=== PATIENT | female | born 1985 | race Caucasian/White ===

== ENCOUNTER → 2017-10-30 11:10 | Outpatient (CLI) | payer OTHER, SELFPAY ==
[2017-10-31 12:35] LABS: Bacteria 0 SEEN /hpf (None Seen); Mucous, Urine 0 SEEN /hpf (<or=2+); Red Blood Cells-Urine 0 SEEN /hpf (0-5)
[2017-10-31 13:10] LABS: Color, Urine Yellow (Yellow); Glucose, Dipstick Normal (Normal); Ketone-Dipstick Negative (Negative); Leukocyte Esterase-Dipstick 500 /ul (Negative); Nitrite-Dipstick Negative (Negative); Occult Blood-Urine 250 /ul (Negative); Protein-Dipstick 30 mg/dl (Negative); Urine Bilirubin Dipstick Negative (Negative); Urine Clarity Cloudy (Clear); Urine Urobilinogen Normal (Normal)
[2017-10-31 13:23] LABS: Squamous Epithelial Cells - UA 5-10 SEEN /hpf (5-10); White Blood Cells >100 SEEN /hpf (0-5)
== END ==
PROVIDERS: Visit Provider Physician Assistant Medical
DX: R30.0 Dysuria (principal)
CPT/HCPCS: 81001; 87077; 87086; 87088; 87186

== ENCOUNTER → 2017-11-15 13:25 | Outpatient (CLI) | payer OTHER, SELFPAY | PROVIDERS: Visit Provider Obstetrics & Gynecology | DX: N90.0 Mild vulvar dysplasia (principal) | CPT/HCPCS: 87086 ==

== ENCOUNTER 2017-12-22 18:40 | Emergency (ER) | payer OTHER, SELFPAY ==
[2017-12-22 18:41] VITALS: BP 125/92; PULSE 71; RESP 14; TEMP 37.1; O2SAT 97; BMI 28.3
--- NOTE | 2017-12-22 19:58 | ED.VISSUMM ---
- ER Visit Summary Date of Service: 12/22/17 Chief Complaint: [Left shoulder pain] History of Present Illness: The patient is a 32 F [presents the emergency department complaint left shoulder pain that started 3 or 4 days ago. Patient states that she rolled over while sleeping and felt a pop in her left shoulder and had severe pain at that time but then ended up just falling back asleep. Since that time patient's had continued discomfort in her left shoulder that at times will send pain radiating down towards her hand. Patient denies any weakness in the extremity. Certain range of motion does cause her more pain. Patient denies any neck pain or neck injury. She denies recent travel or surgery.] Physical Examination: [HEENT-PERRLA, EOMI. Cranial nerves II through XII grossly intact. TMs clear. Mucous membranes moist. No adenopathy. No C-spine tenderness on palpation Cardiovascular-regular rate and rhythm without murmur or ectopy Lungs-clear to auscultation, chest wall stable without crepitus or subcu emphysema Abdomen-normoactive bowel sounds, soft, nontender, no rebound or rigidity, no peritoneal signs. Extremities-intact ?4, normal range of motion, normal pulses. Left shoulder-patient has some mild discomfort along the glenohumeral joint. Patient has normal range of motion at the glenohumeral joint is able to put her arm behind her back. Patient is able to abduct to 90? and resisted abduction. She is neurovascular intact distally with normal station normal cap refill and normal pulses. Patient has normal dermatopathologist strength. Test Results: [None indicated. We discussed obtaining x-ray of the left shoulder but felt this would be low yield given that she has had no direct trauma and clinically I do not feel the shoulder is dislocated.] Emergency Department Course and Treatment: [I suspect likely soft tissue injury to the shoulder.] Treatment Plan: [Patient will be given a sling and a prescription for Naprosyn and [place]] Disposition: [Discharged home in stable condition] Impression: [Left shoulder sprain-possible internal derangement] This note was generated with [employer] dictation software. It may contain incorrect words, spelling, and punctuation that were not noted in review of the chart prior to signing ED Disposition - Plan for ED Patient: Chief Complaint: Upper Extremity Injury Referrals: Care Physician,No Primary [Primary Care Provider] -
--- NOTE | 2017-12-22 20:01 | ED.DCSUM_ITS ---
- ER Visit Summary Date of Service: 12/22/17 Chief Complaint: [Left shoulder pain] History of Present Illness: The patient is a 32 F [presents the emergency department complaint left shoulder pain that started 3 or 4 days ago. Patient states that she rolled over while sleeping and felt a pop in her left shoulder and had severe pain at that time but then ended up just falling back asleep. Since that time patient's had continued discomfort in her left shoulder that at times will send pain radiating down towards her hand. Patient denies any weakness in the extremity. Certain range of motion does cause her more pain. Patient denies any neck pain or neck injury. She denies recent travel or surgery.] Physical Examination: [HEENT-PERRLA, EOMI. Cranial nerves II through XII grossly intact. TMs clear. Mucous membranes moist. No adenopathy. No C- spine tenderness on palpation Cardiovascular-regular rate and rhythm without murmur or ectopy Lungs-clear to auscultation, chest wall stable without crepitus or subcu emphysema Abdomen-normoactive bowel sounds, soft, nontender, no rebound or rigidity, no peritoneal signs. Extremities-intact ?4, normal range of motion, normal pulses. Left shoulder- patient has some mild discomfort along the glenohumeral joint. Patient has normal range of motion at the glenohumeral joint is able to put her arm behind her back. Patient is able to abduct to 90? and resisted abduction. She is neurovascular intact distally with normal station normal cap refill and normal pulses. Patient has normal improvement intern strength. Test Results: [None indicated. We discussed obtaining x-ray of the left shoulder but felt this would be low yield given that she has had no direct trauma and clinically I do not feel the shoulder is dislocated.] Emergency Department Course and Treatment: [I suspect likely soft tissue injury to the shoulder.] Treatment Plan: [Patient will be given a sling and a prescription for Naprosyn and [place]] Disposition: [Discharged home in stable condition] Impression: [Left shoulder sprain-possible internal derangement] This note was generated with Y[employer] dictation software. It may contain incorrect words, spelling, and punctuation that were not noted in review of the chart prior to signing ED Disposition - Plan for ED Patient: Chief Complaint: Upper Extremity Injury Referrals: Care Physician,No Primary [Primary Care Provider] -
--- NOTE | 2017-12-22 20:01 | ED.DEP ---
ED Disposition - Plan for ED Patient: Chief Complaint: Upper Extremity Injury Instructions: ED Sprain Shoulder Prescriptions: Hydrocodone Bitart/Apap 5-325 [[place] 5MG-325MG] 1 tab PO Q4H PRN PRN 2 Days #10 tab PRN Reason: Pain Naproxen [Naprosyn] 500 mg PO BID PRN #20 tab Referrals: Care Physician,No Primary [Primary Care Provider] - Diego Pastrana MD [STAFF PHYSICIAN] - 3-5 Days
[2017-12-22 20:13] VITALS: BP 114/97; PULSE 79; RESP 16; O2SAT 96
== END 2017-12-22 20:14 | disposition home or self-care (01) ==
LOC: ED 20:04
PROVIDERS: Emergency Provider Emergency Medicine; Family Provider Internal Medicine; PCP Internal Medicine
DX: S43.402A Unspecified sprain of left shoulder joint, initial encounter (principal); X58.XXXA Exposure to other specified factors, initial encounter; Y93.84 Activity, sleeping; Y92.003 Bedroom of unspecified non-institutional (private) residence as the place of occurrence of the external cause; Y99.8 Other external cause status
CPT/HCPCS: 99283

== ENCOUNTER → 2018-03-29 13:26 | Outpatient (CLI) | payer OTHER, SELFPAY ==
[2018-03-29 14:32] LABS: hCG Titer Quant., Serum 356 mIU/mL (<9 non-preg)
== END ==
PROVIDERS: Visit Provider Obstetrics & Gynecology
DX: Z34.81 Encounter for supervision of other normal pregnancy, first trimester (principal)
CPT/HCPCS: 36415; 84702

== ENCOUNTER → 2018-03-31 13:22 | Outpatient (CLI) | payer OTHER, SELFPAY ==
[2018-03-31 15:38] LABS: hCG Titer Quant., Serum 295 mIU/mL (<9 non-preg)
[2018-03-31 16:13] LABS: Progesterone Level 2.46 ng/mL (See Comment)
== END ==
PROVIDERS: Visit Provider Obstetrics & Gynecology
DX: Z34.81 Encounter for supervision of other normal pregnancy, first trimester (principal)
CPT/HCPCS: 36415; 84144; 84702

== ENCOUNTER → 2018-06-08 14:53 | Outpatient (CLI) | payer OTHER, SELFPAY ==
[2018-06-08 12:45] VITALS: BMI 28.3
== END ==
PROVIDERS: Referring Provider Physician Assistant; Visit Provider Physician Assistant
DX: J02.9 Acute pharyngitis, unspecified (principal)
CPT/HCPCS: 87081

== ENCOUNTER → 2018-06-19 13:23 | Outpatient (CLI) | payer OTHER, SELFPAY ==
[2018-06-08 12:45] VITALS: BMI 28.3
[2018-06-19 17:52] LABS: Progesterone Level 16.75 ng/mL (See Comment)
== END ==
PROVIDERS: Visit Provider Obstetrics & Gynecology
DX: N97.0 Female infertility associated with anovulation (principal)
CPT/HCPCS: 36415; 84144

== ENCOUNTER → 2018-08-28 | Outpatient (CLI) | payer OTHER, SELFPAY ==
[2018-06-08 12:45] VITALS: BMI 28.3
== END | disposition home or self-care (01) ==
LOC: WOBLAB 11:53
PROVIDERS: Visit Provider Obstetrics & Gynecology
DX: N97.1 Female infertility of tubal origin (principal)
CPT/HCPCS: 36415; 84144

== ENCOUNTER → 2018-09-25 11:19 | Outpatient (CLI) | payer OTHER, SELFPAY ==
[2018-06-08 12:45] VITALS: BMI 28.3
[2018-09-25 13:29] LABS: Progesterone Level 0.39 ng/mL (See Comment)
== END ==
PROVIDERS: Visit Provider Obstetrics & Gynecology
DX: N97.1 Female infertility of tubal origin (principal)
CPT/HCPCS: 36415; 84144

== ENCOUNTER → 2018-11-08 | Outpatient (CLI) | payer OTHER, SELFPAY ==
[2018-06-08 12:45] VITALS: BMI 28.3
[2018-11-08 16:05] LABS: Progesterone Level 7.76 ng/mL (See Comment)
== END | disposition home or self-care (01) ==
LOC: WOBLAB 13:11
PROVIDERS: Visit Provider Obstetrics & Gynecology
DX: N97.1 Female infertility of tubal origin (principal)
CPT/HCPCS: 36415; 84144

== ENCOUNTER → 2019-06-01 17:42 | Outpatient (CLI) | payer OTHER, SELFPAY ==
[2019-03-17 08:44] VITALS: BMI 28.3
--- NOTE | 2019-06-01 17:49 | US_ITS ---
STUDY: FIRST TRIMESTER OBSTETRICAL ULTRASOUND REASON FOR EXAM: Female, 34 years old viability. [place] urine. Some discomfort. LMP: April 04, 2019. TECHNIQUE: Transvaginal TECHNICAL QUALITY: Adequate. PRIOR ULTRASOUND: None. FINDINGS: There is visualization of a single gestational sac in a normal intrauterine position. The mean sac diameter (MSD) measures 1.44 cm, indicating an estimated gestational age (EGA) of 6 weeks, 2 days. The gestational sac shape is within normal limits. There is a visualized yolk sac. The yolk sac measures 0.54 cm. The placenta is non-visualized. There is visualization of a live embryo. The crown-rump length (CRL) measures 0.26 cm, indicating an estimated gestational age (EGA) of 5 weeks, 6 days. There is demonstrated cardiac activity with a heart rate of 85 bpm. The estimated gestation age (EGA) by LMP is 8 weeks, 2 days. The estimated date of delivery (MT) by LMP is January 09, 2020. The estimated gestation age (EGA) by US is 6 weeks, 1 days. The estimated date of delivery (MT) by US is January 24, 2020. The uterus measures 8.7 x 7.1 x 5.0 cm. There is no demonstrated uterine fibroid. The cervix is closed. The right ovary measures 4.1 x 3.4 x 2.5 cm. There is a 1.9 x 1.9 x 1.4 cm dominant cyst. There is no visualized right adnexal mass or complex lesion. The left ovary measures 4.5 x 2.3 x 1.6 cm. There is no left ovarian cyst. There is no visualized left adnexal mass or complex lesion. There is no fluid in the cul de sac. US/Transvaginal w/Preg US IMPRESSION: 1. Live single intrauterine at 6 weeks, 1 day. 2. heart rate of 85 bpm. 3. Question right ovarian corpus luteum cyst. Electronically Signed: Malik James DO at 19:27 EST Tel [phone], Service support ,
== END ==
PROVIDERS: Referring Provider Obstetrics & Gynecology; Visit Provider Obstetrics & Gynecology
DX: O36.80X0 Pregnancy with inconclusive fetal viability, not applicable or unspecified (principal); Z3A.00 Weeks of gestation of pregnancy not specified
CPT/HCPCS: 76817

== ENCOUNTER → 2019-06-13 09:43 | Outpatient (CLI) | payer OTHER, SELFPAY ==
[2019-06-13 09:17] VITALS: BMI 29.0
[2019-06-13 10:17] LABS: Absolute Lymphocyte Count 1.47 X10^3/uL (0.83-4.51); Absolute Neutrophil Count 4.7 X10^3/uL (2.0-7.7); Basophil# 0.03 X10^3/uL; Basophil% 0.4 % (0-1); Eosinophil# 0.16 X10^3/uL; Eosinophils% 2.4 % (0-5); Hematocrit 39.2 % (37-47); Hemoglobin 12.6 g/dL (12.0-15.0); Lymphocyte # 1.47 X10^3/ul (4.0); Lymphocyte % 21.8 % (19-41); Mean Corp Hgb Conc 32.1 g/dL (32-36); Mean Corpuscular Hgb 26.6 pg (27.0-32.0); Mean Corpuscular Volume 82.7 fL (81-99); Mean Platelet Vol. 8.7 fl (6.2-12.0); Monocyte# 0.41 X10^3/uL; Monocyte% 6.1 % (0-10); NRBC Flagged by Analyzer 0 % (0-5); Neutrophil # 4.65 X10^3/uL (2.7-7.7); Platelet Count 334 K/mm3 (150-450); RBC Distribution Width CV 13.4 % (11.6-14.6); RBC Distribution Width SD 40.2 fl (35.1-43.9); Red Blood Count 4.74 M/mm3 (4.2-5.4); White Blood Count 6.7 K/mm3 (4.4-11.0)
[2019-06-13 11:14] LABS: T4 Free Direct 0.82 ng/dL (0.76-1.46); Thyroid Stim Hormone (TSH) 2.42 uIU/mL (0.358-3.74)
== END ==
PROVIDERS: Nurse Practitioner Women's Health; Referring Provider Obstetrics & Gynecology; Visit Provider Obstetrics & Gynecology
DX: O03.9 Complete or unspecified spontaneous abortion without complication (principal)
CPT/HCPCS: 36415; 84439; 84443; 85025

== ENCOUNTER → 2019-06-15 17:59 | Outpatient (CLI) | payer OTHER, SELFPAY ==
[2019-06-13 09:17] VITALS: BMI 29.0
[2019-06-13 09:49] VITALS: BMI 28.3
--- NOTE | 2019-06-15 18:02 | US_ITS ---
STUDY: ULTRASOUND OF THE FEMALE PELVIS - COMPLETE REASON FOR EXAM: Female, 34 years old. Bleeding, status post miscarriage LMP: TECHNIQUE: Endovaginal TECHNICAL QUALITY: Adequate. COMPARISON: None. FINDINGS: The uterus is anteverted and is in a midline position. The uterus measures 7.8 x 6.6 x 5.5 cm. Nabothian cysts at the uterine cervix. The endometrium measures 17 mm in thickness, and is heterogeneous with mild vascularity. There is possible mild endometrial fluid and possible clot. There is no demonstrated myometrial mass. The patient does not have an I.U.D. The right ovary is visualized. The right ovary measures 3.4 x 2.7 x 1.8 cm. There is a 1.5 cm right ovarian cyst. There is normal arterial and normal venous vascularity. The left ovary is visualized. The left ovary measures 3.6 x 2.5 x 2.4 cm. There is no left ovarian cyst or ovarian mass. There is no visualized left adnexal mass or complex lesion. There is normal arterial and normal venous vascularity. There is mild fluid in the cul-de-sac. US/Transvaginal Non- IMPRESSION: Mild heterogeneity of the endometrium within a retroverted uterus. Possible trace endometrial fluid and possible clot. Small right ovarian cyst. Mild free fluid in the pelvis. Electronically Signed: Isaac Tavera DO at 19:11 EST Tel [phone], Service support ,
== END ==
LOC: US 18:00
PROVIDERS: Referring Provider Nurse Practitioner Women's Health; Visit Provider Nurse Practitioner Women's Health
DX: N83.201 Unspecified ovarian cyst, right side (principal)
CPT/HCPCS: 76830

== ENCOUNTER → 2019-06-25 12:25 | Outpatient (CLI) | payer OTHER, SELFPAY ==
[2019-06-13 09:49] VITALS: BMI 28.3
[2019-06-25 13:27] LABS: hCG Titer Quant., Serum 39 mIU/mL (1-3)
== END ==
PROVIDERS: Referring Provider Obstetrics & Gynecology; Visit Provider Obstetrics & Gynecology
DX: N96 Recurrent pregnancy loss (principal)
CPT/HCPCS: 36415; 84702

== ENCOUNTER → 2019-07-02 16:47 | Outpatient (CLI) | payer OTHER, SELFPAY ==
[2019-06-13 09:49] VITALS: BMI 28.3
[2019-07-02 17:40] LABS: hCG Titer Quant., Serum 9 mIU/mL (1-3)
== END ==
PROVIDERS: Nurse Practitioner Women's Health; Referring Provider Obstetrics & Gynecology; Visit Provider Obstetrics & Gynecology
DX: N96 Recurrent pregnancy loss (principal)
CPT/HCPCS: 36415; 84702

== ENCOUNTER → 2019-07-09 11:41 | Outpatient (CLI) | payer OTHER, SELFPAY ==
[2019-06-13 09:49] VITALS: BMI 28.3
[2019-07-09 12:18] LABS: hCG Titer Quant., Serum 4 mIU/mL (1-3)
== END ==
PROVIDERS: Nurse Practitioner Women's Health; Referring Provider Obstetrics & Gynecology; Visit Provider Obstetrics & Gynecology
DX: O03.9 Complete or unspecified spontaneous abortion without complication (principal)
CPT/HCPCS: 36415; 84702

== ENCOUNTER → 2020-07-24 09:22 | Outpatient (CLI) | payer OTHER, SELFPAY ==
[2019-06-13 09:49] VITALS: BMI 28.3
[2020-07-24 10:11] LABS: hCG Titer Quant., Serum 18 mIU/mL (1-3)
== END ==
PROVIDERS: Referring Provider Obstetrics & Gynecology; Visit Provider Obstetrics & Gynecology
DX: N91.2 Amenorrhea, unspecified (principal)
CPT/HCPCS: 36415; 84702

== ENCOUNTER → 2020-07-26 07:52 | Outpatient (CLI) | payer OTHER, SELFPAY ==
[2019-06-13 09:49] VITALS: BMI 28.3
[2020-07-26 10:14] LABS: hCG Titer Quant., Serum 54 mIU/mL (1-3)
== END ==
PROVIDERS: Referring Provider Obstetrics & Gynecology; Visit Provider Obstetrics & Gynecology
DX: N91.2 Amenorrhea, unspecified (principal)
CPT/HCPCS: 36415; 84702

== ENCOUNTER → 2020-07-28 12:53 | Outpatient (CLI) | payer OTHER, SELFPAY ==
[2019-06-13 09:49] VITALS: BMI 28.3
[2020-07-28 13:57] LABS: hCG Titer Quant., Serum 146 mIU/mL (1-3)
== END ==
PROVIDERS: Referring Provider Obstetrics & Gynecology; Visit Provider Obstetrics & Gynecology
DX: N96 Recurrent pregnancy loss (principal)
CPT/HCPCS: 36415; 84702

== ENCOUNTER → 2020-08-13 07:58 | Outpatient (CLI) | payer OTHER, SELFPAY ==
[2019-06-13 09:49] VITALS: BMI 28.3
[2020-08-05 12:58] VITALS: BMI 28.3
--- NOTE | 2020-08-13 08:01 | US_ITS ---
STUDY: FIRST TRIMESTER OBSTETRICAL ULTRASOUND REASON FOR EXAM: Female, 35 years old viability . History of recurrent miscarriages. LMP: 06/22/2020. TECHNIQUE: Transabdominal TECHNICAL QUALITY: Adequate. PRIOR ULTRASOUND: None. FINDINGS: There is visualization of a single gestational sac in a normal intrauterine position. The mean sac diameter (MSD) measures 1.9 cm, indicating an estimated gestational age (EGA) of 6 weeks, 5 days. The gestational sac shape is within normal limits. There is a visualized yolk sac. The yolk sac measures 4.7 mm. The placenta is non-visualized. There is visualization of a live embryo. The crown-rump length (CRL) measures 5.6 mm, indicating an estimated gestational age (EGA) of 6 weeks, 3 days. There is demonstrated cardiac activity with a heart rate of 123 bpm. The estimated gestation age (EGA) by LMP is 7 weeks, 3 days. The estimated date of delivery (MT) by LMP is 03/29/2021. The estimated gestation age (EGA) by US is 6 weeks, 4 days. The estimated date of delivery (MT) by US is 04/04/2021. The uterus measures 10.2 cm x 6.9 cm x 6.3 cm. There is no demonstrated uterine fibroid. The cervix is closed. There is an 8 mm x 15 mm x 3 mm subchorionic hematoma. The right ovary measures 3.6 cm x 3.1 cm x 2.1 cm. There is no right ovarian cyst. There is no visualized right adnexal mass or complex lesion. The left ovary measures 5.6 cm x 4.8 cm x 2.6 cm. There is a 2.2 cm x 2.5 cm x 2.6 cm cyst. There is no visualized left adnexal mass or complex lesion. Trace amount of free fluid. US/Transvaginal w/Preg US IMPRESSION: Single live intrauterine gestation with a mean gestational age of 6 weeks and 4 days. There 8 mm x 13 mm x 3 mm subchorionic hematoma. 2.2 cm x 2.5 cm x 2.6 cm left ovarian cyst. Electronically Signed: Joel Tay MD at 13:00 EDT , Service support ,
== END ==
PROVIDERS: PCP Internal Medicine; Referring Provider Obstetrics & Gynecology; Visit Provider Obstetrics & Gynecology
DX: Z34.90 Encounter for supervision of normal pregnancy, unspecified, unspecified trimester (principal); N96 Recurrent pregnancy loss
CPT/HCPCS: 76817

== ENCOUNTER → 2020-08-28 16:12 | Outpatient (CLI) | payer OTHER, SELFPAY ==
[2020-08-28 14:01] VITALS: BMI 33.3
[2020-08-28 18:04] LABS: Amphetamine Urine VISTA NEGATIVE (<1000 ng/mL); Barbiturate Urine VISTA NEGATIVE (< 200 ng/mL); Benzodiazepine Urine VISTA NEGATIVE (< 200 ng/mL); Cocaine Urine VISTA NEGATIVE (< 300 ng/mL); Ecstacy Urine VISTA NEGATIVE (< 500 ng/mL); Methadone Urine VISTA NEGATIVE (< 300 ng/mL); PCP Urine VISTA NEGATIVE (< 25 ng/mL); THC Urine VISTA NEGATIVE (< 50 ng/mL); Vista UDS pH Range 5
[2020-08-31 14:07] LABS: Chlamydia By Nucleic Acid AMP Negative (Negative)
[2020-08-31 17:30] LABS: Gonococcus By Nucleic Acid AMP Negative (Negative)
[2020-09-02 16:33] LABS: HPV APTIMA, High Risk Negative (Negative)
== END ==
PROVIDERS: PCP Internal Medicine; Referring Provider Obstetrics & Gynecology; Visit Provider Obstetrics & Gynecology
DX: O09.90 Supervision of high risk pregnancy, unspecified, unspecified trimester (principal); Z12.4 Encounter for screening for malignant neoplasm of cervix; Z3A.00 Weeks of gestation of pregnancy not specified
CPT/HCPCS: 80307; 87086; 87088; 87491; 87591; 87624; 88175; G0145

== ENCOUNTER → 2020-09-15 13:29 | Outpatient (CLI) | payer OTHER, SELFPAY ==
[2020-09-15 13:08] VITALS: BMI 33.3
[2020-09-15 14:02] LABS: Absolute Lymphocyte Count 1.78 X10^3/uL (0.83-4.51); Absolute Neutrophil Count 6.6 X10^3/uL (2.0-7.7); Basophil# 0.02 X10^3/uL; Basophil% 0.2 % (0-1); Eosinophil# 0.16 X10^3/uL; Eosinophils% 1.8 % (0-5); Hemoglobin 13.2 g/dL (12.0-15.0); Lymphocyte # 1.78 X10^3/ul (0.83-4.51); Lymphocyte % 19.6 % (19-41); Mean Corp Hgb Conc 33.8 g/dL (32-36); Mean Corpuscular Hgb 27.6 pg (27.0-32.0); Mean Corpuscular Volume 81.4 fL (81-99); Monocyte# 0.44 X10^3/uL; Monocyte% 4.8 % (0-10); NRBC Flagged by Analyzer 0 % (0-5); Neutrophil # 6.62 X10^3/uL (2.7-7.7); Neutrophil % 72.9 % (47-70); Platelet Count 333 K/mm3 (150-450); RBC Distribution Width CV 13.6 % (11.6-14.6); RBC Distribution Width SD 39.8 fl (35.1-43.9); Red Blood Count 4.79 M/mm3 (4.2-5.4); White Blood Count 9.1 K/mm3 (4.4-11.0)
[2020-09-15 14:33] LABS: Glucose Challenge Gest 1H 50g 115 mg/dL (70-140)
[2020-09-15 14:37] LABS: Protein, Urine (Random) 17.7 mg/dL (<11.9); Protein:Creat Ratio 121 mg/g CRE (0-200)
[2020-09-15 14:39] LABS: AST(SGOT) 14 U/L (15-37); Alanine Aminotransfer ALT/SGPT 25 U/L (13-56); Albumin, Serum 3.2 g/dL (3.2-5.0); Alkaline Phosphatase 69 U/L (45-117); Anion Gap 9 (5-15); BUN 6 mg/dL (7-18); BUN/Creat Ratio 10.9 RATIO (10-20); Calcium,Total 8.6 mg/dL (8.5-10.1); Chloride 106 mmol/L (98-107); Creatinine, Serum 0.55 mg/dL (0.55-1.02); EST Glomerular Filtration Rate 135 mL/min (>60); Est Glom Filt Rate - Afr Amer 163 mL/min (>60); Globulin 3.2 g/dL (2.2-4.2); Glucose 111 mg/dL (74-106); Potassium 3.5 mmol/L (3.5-5.1); Protein, Total 6.4 g/dL (6.4-8.2); Sodium Level 141 mmol/L (136-145)
[2020-09-15 15:22] LABS: NATERA MAILED SPECIMEN
[2020-09-15 17:06] LABS: HIV - WCH Non-Reactive (Nonreactive); Hepatitis B Surface Antigen Non-Reactive (Nonreactive); Hepatitis C Antibody Non-Reactive (Nonreactive); Rubella IgG Reactive (Nonreactive); Syphilis Antibodies Non-reactive
== END ==
PROVIDERS: PCP Internal Medicine; Referring Provider Obstetrics & Gynecology; Visit Provider Obstetrics & Gynecology
DX: O09.90 Supervision of high risk pregnancy, unspecified, unspecified trimester (principal); O99.210 Obesity complicating pregnancy, unspecified trimester; O10.919 Unspecified pre-existing hypertension complicating pregnancy, unspecified trimester; Z3A.00 Weeks of gestation of pregnancy not specified
CPT/HCPCS: 36415; 80053; 82570; 82950; 84156; 85025; 86703; 86762; 86780; 86803; 86850; 86900; 86901; 87340

== ENCOUNTER → 2020-10-30 14:23 | Outpatient (CLI) | payer OTHER, SELFPAY ==
[2020-10-30 13:51] VITALS: BMI 33.3
== END ==
PROVIDERS: PCP Internal Medicine; Referring Provider Obstetrics & Gynecology; Visit Provider Obstetrics & Gynecology
DX: N76.0 Acute vaginitis (principal)
CPT/HCPCS: 87070; 87205

== ENCOUNTER → 2020-11-07 16:48 | Outpatient (CLI) | payer OTHER, SELFPAY ==
[2020-11-07 13:17] VITALS: BMI 33.3
== END ==
PROVIDERS: PCP Internal Medicine; Visit Provider Obstetrics & Gynecology
DX: R10.2 Pelvic and perineal pain (principal)
CPT/HCPCS: 87086; 87088

== ENCOUNTER → 2021-01-08 08:02 | Outpatient (CLI) | payer OTHER, SELFPAY ==
[2020-12-11 15:35] VITALS: BMI 33.3
[2021-01-08 08:23] LABS: Absolute Lymphocyte Count 1.47 X10^3/uL (0.83-4.51); Absolute Neutrophil Count 7.7 X10^3/uL (2.0-7.7); Basophil# 0.02 X10^3/uL; Basophil% 0.2 % (0-1); Eosinophil# 0.13 X10^3/uL; Eosinophils% 1.3 % (0-5); Hematocrit 34.9 % (37-47); Hemoglobin 11.6 g/dL (12.0-15.0); Lymphocyte # 1.47 X10^3/ul (0.83-4.51); Lymphocyte % 14.7 % (19-41); Mean Corp Hgb Conc 33.2 g/dL (32-36); Mean Corpuscular Hgb 28.3 pg (27.0-32.0); Mean Corpuscular Volume 85.1 fL (81-99); Mean Platelet Vol. 9.3 fl (6.2-12.0); Monocyte# 0.57 X10^3/uL; Monocyte% 5.7 % (0-10); NRBC Flagged by Analyzer 0 % (0-5); Neutrophil # 7.68 X10^3/uL (2.7-7.7); Platelet Count 255 K/mm3 (150-450); RBC Distribution Width CV 14.8 % (11.6-14.6); RBC Distribution Width SD 46.3 fl (35.1-43.9)
[2021-01-08 08:39] LABS: Glucose Challenge Gest 1H 50g 111 mg/dL (70-140)
--- NOTE | 2021-01-08 09:07 | US_ITS ---
STUDY: SECOND AND THIRD TRIMESTER OBSTETRICAL ULTRASOUND - LIMITED REASON FOR EXAM: Female, 35 years old cervical length check LMP: 06/22/2020 PRIOR ULTRASOUND: Comparison is made with prior study of 08/13/2020. TECHNIQUE: Transvaginal TECHNICAL QUALITY: Adequate. FINDINGS: There is a single intrauterine fetus. The fetus is in a cephalic presentation. There is demonstrated cardiac activity with a heart rate of 158 bpm. The placenta is posterior in location and is not low lying. The cervix measures 3.84 cm in length. US/Transvaginal w/Preg US IMPRESSION: The tip of the placenta is at 3.9 cm from the internal os. Cervical length measures 3.8 cm. Electronically Signed: Joel Tay MD at 15:21 EDT , Service support ,
== END ==
PROVIDERS: PCP Internal Medicine; Referring Provider Obstetrics & Gynecology; Visit Provider Obstetrics & Gynecology
DX: O09.90 Supervision of high risk pregnancy, unspecified, unspecified trimester (principal); O44.42 Low lying placenta NOS or without hemorrhage, second trimester; Z3A.00 Weeks of gestation of pregnancy not specified; Z13.1 Encounter for screening for diabetes mellitus
CPT/HCPCS: 36415; 76817; 82950; 85025

== ENCOUNTER → 2021-02-12 08:01 | Outpatient (CLI) | payer OTHER, SELFPAY ==
[2020-11-13 16:19] VITALS: BMI 33.3
--- NOTE | 2021-02-12 08:04 | US_ITS ---
STUDY: SECOND AND THIRD TRIMESTER OBSTETRICAL ULTRASOUND - LIMITED REASON FOR EXAM: Female, 35 years old growth -- 32 weeks, high risk- multiple SABs LMP: 06/29/2020 PRIOR ULTRASOUND: Comparison is made with prior study 01/08/2021. TECHNIQUE: Transabdominal TECHNICAL QUALITY: Adequate. FINDINGS: There is a single intrauterine fetus. The fetus is in a cephalic presentation. There is demonstrated cardiac activity with a heart rate of 152 bpm. There is a normal amniotic fluid volume. The largest amniotic fluid pocket measures 4.4 cm. The amniotic fluid index (DEANA) is 13.4 cm. The placenta is posterior in location and is not low lying. There are Grade 2 placental changes. The cervix measures 3.3 cm in length. BIOMETRY: BPD: 8.2 cm: 32 weeks, 6 days HC: 29.8 cm: 32 weeks, 6 days AC: 29 cm: 33 weeks, 0 days FL: 6.4 cm: 30 weeks, 5 days Age by LMP: 32 weeks, 4 days. MT by LMP: 04/05/2021. age by prior US: 32 weeks, 3 days. MT by prior US: 04/04/2021. age by current US: 32 weeks, 4 days. MT by current US: 04/05/2021. Estimated weight: 2113 grams, +/- 317 grams, 56 percentile. US/OB Limited With Biometrics IMPRESSION: Single live intrauterine gestation with a mean gestational age of 32 weeks and 4 days. Electronically Signed: Joel Tay MD at 10:49 EDT , Service support ,
== END ==
PROVIDERS: PCP Internal Medicine; Referring Provider Obstetrics & Gynecology; Visit Provider Obstetrics & Gynecology
DX: O10.919 Unspecified pre-existing hypertension complicating pregnancy, unspecified trimester (principal); Z3A.00 Weeks of gestation of pregnancy not specified
CPT/HCPCS: 76816

== ENCOUNTER 2021-02-19 09:20 | Outpatient (CLI) | payer OTHER, SELFPAY ==
[2021-02-19 10:38] VITALS: TEMP 36.6; O2SAT 97
[2021-02-19 10:39] VITALS: BP 117/73; PULSE 95
[2021-02-19 11:02] VITALS: BMI 34.2
--- NOTE | 2021-02-20 16:14 | OB.TRI.PN_ITS ---
Progress Notes Date of Service: 02/19/21 Progress Note: Patient presents for triage evaluation secondary to possible decels in office. BPP 12/21. FHT Cat 1. FHT: Moderate variability reactive no decelerations category I tracing [place]: No Contractions Assessment and plan: Reactive NST, reassuring maternal and status patient discharged to home to follow-up at next scheduled visit. See problem list details for additional plan information. Charges/Coding Procedures Urinary/Genital [id number]: [id number] non-stress test Interp
== END 2021-02-19 11:52 | disposition home or self-care (01) ==
LOC: WPOUT 09:25 → WP 09:33
PROVIDERS: PCP Internal Medicine; Referring Provider Obstetrics & Gynecology; Visit Provider Obstetrics & Gynecology
DX: O47.9 False labor, unspecified (principal); Z3A.00 Weeks of gestation of pregnancy not specified
CPT/HCPCS: 59025; 59050; 99218; G0378

== ENCOUNTER → 2021-02-19 09:31 | Outpatient (CLI) | payer OTHER, SELFPAY ==
[2020-11-13 16:19] VITALS: BMI 33.3
--- NOTE | 2021-02-19 09:35 | US_ITS ---
STUDY: OBSTETRICAL ULTRASOUND - BIOPHYSICAL PROFILE REASON FOR EXAM: Female, 35 years old, decreased movement LMP: 06/29/2020 PRIOR ULTRASOUND: 02/12/2021 TECHNIQUE: Transabdominal TECHNICAL QUALITY: Adequate. FINDINGS: There is a single intrauterine fetus. The fetus is in a cephalic presentation. There is demonstrated cardiac activity with a heart rate of 167 bpm. There is a normal amniotic fluid volume. The largest amniotic fluid pocket measures 3.84 cm. The amniotic fluid index (DEANA) is 12.31 cm. The placenta is posterior in location and is not low lying. There are Grade 2 placental changes. Age by LMP: 33 weeks, 4 days. MT by LMP: 04/05/2021. age by prior US: 33 weeks, 5 days. MT by prior US: 04/04/2021. Gender: Male BIOPHYSICAL PROFILE: Breathing Movements (FBM): 2 Gross Body Movements (GBM): 2 Tone (FT): 2 Amniotic Fluid Volume (AFV): 2 TOTAL SCORE: 8 / 8 US/Biophysical Prof W/O Non Stres IMPRESSION: Normal biophysical profile of 12/21. Pega Developer notes a possible nuchal cord seen on image 37 series 1. A short-term follow-up ultrasound is recommended for reassessment Electronically Signed: Nicolas Salazar MD at 10:28 EDT , Service support ,
== END ==
PROVIDERS: PCP Internal Medicine; Referring Provider Obstetrics & Gynecology; Visit Provider Obstetrics & Gynecology
DX: O28.8 Other abnormal findings on antenatal screening of mother (principal); Z3A.00 Weeks of gestation of pregnancy not specified
CPT/HCPCS: 76819

== ENCOUNTER → 2021-03-12 08:48 | Outpatient (CLI) | payer OTHER, SELFPAY ==
[2020-11-13 16:19] VITALS: BMI 33.3
--- NOTE | 2021-03-12 08:51 | US_ITS ---
STUDY: SECOND AND THIRD TRIMESTER OBSTETRICAL ULTRASOUND - LIMITED REASON FOR EXAM: Female, 35 years old growth LMP: 06/29/2020. PRIOR ULTRASOUND: Comparison is made with prior study dated 02/12/2021. TECHNIQUE: Transabdominal TECHNICAL QUALITY: Adequate. FINDINGS: There is a single intrauterine fetus. The fetus is in a cephalic presentation. There is demonstrated cardiac activity with a heart rate of 149 bpm. There is a normal amniotic fluid volume. The largest amniotic fluid pocket measures 8.6 cm. The amniotic fluid index (DEANA) is 11.4 cm. The placenta is posterior in location and is not low lying. There are Grade 3 placental changes. BIOMETRY: BPD: 8.87 cm: 36 weeks, 0 days HC: 32.32 cm: 36 weeks, 4 days AC: 33.67 cm: 37 weeks, 5 days FL: 7.08 cm: 36 weeks, 4 days Age by LMP: 36 weeks, 4 days. MT by LMP: 04/05/2021. age by prior US: 36 weeks, 4 days. MT by prior US: 04/05/2021. age by current US: 36 weeks, 5 days. MT by current US: 04/04/2021. Estimated weight: 3076 grams, +/- 449 grams, 65 percentile. US/OB Limited With Biometrics IMPRESSION: Single live intrauterine gestation with a mean gestational age of 36 weeks and 4 days. The measurements obtained today following within the normal expected range. Electronically Signed: Joel Tay MD at 13:40 EDT , Service support ,
== END ==
PROVIDERS: PCP Internal Medicine; Referring Provider Obstetrics & Gynecology; Visit Provider Obstetrics & Gynecology
DX: O10.919 Unspecified pre-existing hypertension complicating pregnancy, unspecified trimester (principal); Z3A.00 Weeks of gestation of pregnancy not specified
CPT/HCPCS: 76816; 87081

== ENCOUNTER → 2021-03-31 11:18 | Outpatient (CLI) | payer OTHER, SELFPAY ==
[2021-03-31 11:48] LABS: Absolute Lymphocyte Count 1.63 X10^3/uL (0.83-4.51); Absolute Neutrophil Count 6.4 X10^3/uL (2.0-7.7); Basophil# 0.02 X10^3/uL; Basophil% 0.2 % (0-1); Eosinophil# 0.11 X10^3/uL; Eosinophils% 1.2 % (0-5); Hematocrit 37.2 % (37-47); Hemoglobin 12.4 g/dL (12.0-15.0); Lymphocyte # 1.63 X10^3/ul (0.83-4.51); Lymphocyte % 18.3 % (19-41); Mean Corp Hgb Conc 33.3 g/dL (32-36); Mean Platelet Vol. 9.3 fl (6.2-12.0); Monocyte# 0.69 X10^3/uL; Monocyte% 7.7 % (0-10); NRBC Flagged by Analyzer 0 % (0-5); Neutrophil % 71.7 % (47-70); Platelet Count 272 K/mm3 (150-450); RBC Distribution Width CV 15.2 % (11.6-14.6); RBC Distribution Width SD 46.2 fl (35.1-43.9); Red Blood Count 4.43 M/mm3 (4.2-5.4); White Blood Count 8.9 K/mm3 (4.4-11.0)
[2021-03-31 12:04] LABS: ALB/GLOB Ratio 0.6 RATIO (0.9-2.4); AST(SGOT) 8 U/L (15-37); Alanine Aminotransfer ALT/SGPT 13 U/L (13-56); Albumin, Serum 2.4 g/dL (3.2-5.0); Alkaline Phosphatase 142 U/L (45-117); Anion Gap 9 (5-15); BUN 4 mg/dL (7-18); BUN/Creat Ratio 6.6 RATIO (10-20); Calcium,Total 8.4 mg/dL (8.5-10.1); Chloride 108 mmol/L (98-107); Creatinine, Serum 0.61 mg/dL (0.55-1.02); EST Glomerular Filtration Rate 119 mL/min (>60); Est Glom Filt Rate - Afr Amer 145 mL/min (>60); Globulin 3.7 g/dL (2.2-4.2); Glucose 95 mg/dL (74-106); Potassium 3.8 mmol/L (3.5-5.1); Protein, Total 6.1 g/dL (6.4-8.2); Sodium Level 139 mmol/L (136-145)
[2021-03-31 12:29] LABS: Protein, Urine (Random) 6.8 mg/dL (<11.9); Protein:Creat Ratio 252 mg/g CRE (0-200)
== END ==
PROVIDERS: PCP Internal Medicine; Referring Provider Nurse Practitioner Women's Health; Visit Provider Nurse Practitioner Women's Health
DX: O16.9 Unspecified maternal hypertension, unspecified trimester (principal); Z3A.00 Weeks of gestation of pregnancy not specified
CPT/HCPCS: 36415; 80053; 82570; 84156; 85025

== ENCOUNTER 2021-03-31 12:45 | Inpatient (IN) | payer OTHER, SELFPAY ==
[2021-03-31] VITALS (74 sets, daily range): BP systolic 112–168; BP diastolic 53–113; PULSE 81–136; TEMP 36.1–36.6; O2SAT 78–100; BMI 37.0
--- NOTE | 2021-03-31 13:26 | HP.PCM.OB_ITS ---
HPI - General General Date of Admission: 03/31/21 HPI Narrative BANDAR CHAPMAN, is a 35 F who presents for IOL secondary to preeclampsia. She started having blurry vision this morning and presented for evaluation and had elevated blood pressures. Blurry vision resolved spontaneously and blood work was within normal limits but blood pressures were mildly elevated therefore the decision for an induction of labor was made. Maternal Data Information MT Calculator Estimated Delivery Date Method Current WG Current Estimate 04/05/21 Ultrasound #1 39w 2d Other Estimates 03/29/21 LMP (Certain) 40w 2d PFSH PFSH Medical History Chest pain Frequent headaches Genital warts History of pneumonia Neck pain Ovarian cyst PCOS (polycystic ovarian syndrome) Home Medications prenat.vits,ivania,bjz-toao-rajyd 1 tablet PO DAILY 08/14/20 [History Last Taken 02/18/21] terconazole 0.4 % vaginal cream 1 appful VAGINAL QHS #45 g 11/20/20 [Rx Last Taken 02/12/21] Flucelvax Quad 1547-2082 60 mcg (15 mcg x 4)/0.5 mL intramuscular susp 60 mcg IM ONCE #0.5 ml NS 03/25/21 [Clinic Last Taken Unknown] Allergy/AdvReac Type Severity Reaction Status Date / Time ultrasound coupling medium Allergy Hives Verified 03/31/21 11:07 Family History Mother Hypertension Asthma Father Myocardial infarction, Onset Age: 50 Hypertension Brother Hypertension Grandmother Parkinsons Other Anxiety Hyperlipemia Surgical History History of wisdom tooth extraction, class IV edentulism S/P eye surgery Social History adopted: No household members: spouse housing: house current occupational status: employed 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 pets and animals: Yes history of recent travel: No sexually active: Yes Smoking Status: Never smoker second hand exposure: No alcohol intake: never substance use type: does not use caffeine: Yes what type of physical activity do you participate in: walking frequency: 1-2 times per week seatbelt use: always do you feel safe at home: Yes additional social history: - Abimael- Security Admin History 3 Elective abortions Hx Para 0 Spontaneous abortions 2 Hx # Term Pregnancies Ectopic pregnancies Hx # Pregnancies Multiple births # of living children Visit Details Expected Delivery Route/Plan Labor Preferences- CB/BF classes: yes labor support person: Abimael labor intervention preferences pain management options preferred: epidural cut cord/dad catch: yes : yes PP control planned: discussed discussed possible routes of delivery and associated risks: [] special requests: [] Plans covid status: pfizer vaccine flu vaccine: given tdap vaccine: given rhogam: NA LARC form signed: yes movement and labor precautions reviewed. Problem list reviewed and updated with the most current plan of care details and appropriate orders placed. Relevant counseling for the gestational age provided. Continue routine care and follow up unless otherwise noted in visit notes/problem list details OB Flowsheet Initial Weight: 185 lb Date -?-?-?-?-?-?-?-?-?-?-?-?- EGA Weight BP Urine Prot -?-?-?-?-?-?-?-?-?-?-?-?- Glucose FHR FuHt Pres Dilation -?-?-?-?-?-?-?-?-?-?-?-?- Effaced St Visit Note 08/28/20 -?-?-?-?-?-?-?-?-?-?-?-?- 8w 4d 188 lb 4 oz (+3 lb 4 oz) 120/86 -?-?-?-?-?-?-?-?-?-?-?-?- 175 -?-?-?-?-?-?-?-?-?-?-?-?- SM- viable iup s een 09/15/20 -?-?-?-?-?-?-?-?-?-?-?-?- 11w 1d 188 lb (+3 lb) 112/82 -?-?-?-?-?-?-?-?-?-?-?-?- 180 -?-?-?-?-?-?-?-?-?-?-?-?- SM- no vb colt ng blood work today 10/16/20 -?-?-?-?-?-?-?-?-?-?-?-?- 15w 4d 184 lb (-16 oz) 118/70 Negative -?-?-?-?-?-?-?-?-?-?-?-?- Negative 157 -?-?-?-?-?-?-?-?-?-?-?-?- MH-No VB, LOF. 2 nd yeast inf:has done 5 of 7 nights of tx. No sx today. Exam WNL except medication in vagina. Will call if sx recur. Anatomy US ordered . 10/30/20 -?-?-?-?-?-?-?-?-?-?-?-?- 17w 4d 185 lb 4 oz (+4 oz) 118/74 Trace -?-?-?-?-?-?-?-?-?-?-?-?- Negative 164 -?-?-?-?-?-?-?-?-?-?-?-?- MH-recurrence of white vag DC and severe itching. 3rd occurrence this pregnan cy. Culture collected. Terazol sent. GRADES 9 THRU 12 VISITING TEACHER skin care reviewed 11/07/20 -?-?-?-?-?-?-?-?-?-?-?-?- 18w 5d 122/86 -?-?-?-?-?-?-?-?-?-?-?-?- 145 -?-?-?-?-?-?-?-?-?-?-?-?- SM- recent yeast infection, co vaginal pain going down her leg, no vb discharge. sharp second long pain shooting. 11/13/20 -?-?-?-?-?-?-?-?-?-?-?-?- 19w 4d 183 lb (-2 lb) 122/88 Negative -?-?-?-?-?-?-?-?-?-?-?-?- Negative 160 -?-?-?-?-?-?-?-?-?-?-?-?- SM- no vb lof no ctx 12/11/20 -?-?-?-?-?-?-?-?-?-?-?-?- 23w 4d 185 lb 4 oz (+4 oz) 120/80 Negative -?-?-?-?-?-?-?-?-?-?-?-?- Negative 150 23 -?-?-?-?-?-?-?-?-?-?-?-?- GP - no LOF, VB, DFM, ctx. GCT next visit. Allergic to ultrasound gel. 01/08/21 -?-?-?-?-?-?-?-?-?-?-?-?- 27w 4d 189 lb (+4 lb) 132/70 Negative -?-?-?-?-?-?-?-?-?-?-?-?- Negative 151 28 -?-?-?-?-?-?-?-?-?-?-?-?- MH-No VB, LOF. G ood FM. 28 wk labs WNL. Larc. Tdap next visit 01/20/21 -?-?-?-?-?-?-?-?-?-?-?-?- 29w 2d -?-?-?-?-?-?-?-?-?-?-?-?- -?-?-?-?-?-?-?-?-?-?-?-?- tdap only 01/29/21 -?-?-?-?-?-?-?-?-?-?-?-?- 30w 4d 189 lb (+4 lb) 130/68 Negative -?-?-?-?-?-?-?-?-?-?-?-?- Negative 140 30 -?-?-?-?-?-?-?-?-?-?-?-?- GP - no LOF, VB, dFM, ctx. Discussed sleep in . Reviewed FU US of placenta - no longer low-lying. 02/12/21 -?-?-?-?-?-?-?-?-?-?-?-?- 32w 4d 192 lb 8 oz (+7 lb 8 oz) 118/68 Trace -?-?-?-?-?-?-?-?-?-?-?-?- Negative -?-?-?-?-?-?-?-?-?-?-?-?- 02/19/21 -?-?-?-?-?-?-?-?-?-?-?-?- 33w 4d 192 lb 2 oz (+7 lb 2 oz) 110/80 Negative -?-?-?-?-?-?-?-?-?-?-?-?- Negative -?-?-?-?-?-?-?-?-?-?-?-?- - NST only and noted decels to [address] Israel notified:patient to for prolonged monitoring and BPP 02/26/21 -?-?-?-?-?-?-?-?-?-?-?-?- 34w 4d 194 lb 6 oz (+9 lb 6 oz) 118/78 Negative -?-?-?-?-?-?-?-?-?-?-?-?- Negative 140 -?-?-?-?-?-?-?-?-?-?-?-?- SM- no vb lof go od fm no regular ctx, discussed no cHTN SM- no vb lof good fm no reg ular ctx, discussed misdiagnosis/misunderstanding with cHTN diagnosis. NST done today due to decels last week, repeat NST today reassuring, repeat testing PRN 03/12/21 -?-?-?-?-?-?-?-?-?-?-?-?- 36w 4d 197 lb (+12 lb) 120/80 Negative -?-?-?-?-?-?-?-?-?-?-?-?- Negative 140 38 -?-?-?-?-?-?-?-?-?-?-?-?- SM- no vb lof go od fm no regular ctx 03/16/21 -?-?-?-?-?-?-?-?-?-?-?-?- 37w 1d 200 lb (+15 lb) Negative -?-?-?-?-?-?-?-?-?-?-?-?- Negative -?-?-?-?-?-?-?-?-?-?-?-?- SM- nst for dec fm 03/19/21 -?-?-?-?-?-?-?-?-?-?-?-?- 37w 4d 201 lb (+16 lb) 106/72 Negative -?-?-?-?-?-?-?-?-?-?-?-?- Negative 140 37 Cephalic -?-?-?-?-?-?-?-?-?--?-?-?- - no vb lof go od fm no reuglar ctx 03/25/21 -?-?-?-?-?-?-?-?-?-?-?-?- 38w 3d 203 lb 2 oz (+18 lb 2 oz) 122/80 Negative -?-?-?-?-?-?-?-?-?-?-?-?- Negative 135 38 Cephalic 1 -?-?-?-?-?-?-?-?-?-?-?-?- - no vb lof go od fm no regular ctx 03/31/21 -?-?-?-?-?-?-?-?-?-?-?--?- 39w 2d 205 lb (+20 lb) 140/84 130/85 150/90 Negative -?-?-?-?-?-?-?-?-?-?-?-?- Negative -?-?-?-?-?-?-?-?-?-?-?-?- -work in for josé miguel alvarado changes. Was on monitor and baby FHT to 90s X 30 seconds, patient with sudden headache. BP 150/90. Pre E labs done. To for induction. 03/31/21 -?-?-?-?-?-?-?-?-?-?-?-?- 39w 2d -?-?-?-?-?-?-?-?-?-?-?-?- -?-?-?-?-?-?-?-?-?-?-?-?- NST FHR Rate Baby A Baseline: 130 Variability:: Moderate Accelerations:: 15 x 15 Decelerations:: None NST Reactive:: Yes FHR Category:: Category I Uterine Activity:: irregular ROS Constitutional Constitutional: Reports systems reviewed and no addt'l complaints, except as documented Eyes Eyes: Denies change in vision ENT HEENT: Reports systems reviewed and no addt'l complaints, except as documented; Denies headache(s) Cardiovascular Cardiovascular: Reports systems reviewed and no addt'l complaints, except as documented; Denies chest pain or dyspnea Respiratory/Chest Respiratory/Chest: Reports systems reviewed and no addt'l complaints, except as documented Gastrointestinal Gastrointestinal: Reports systems reviewed and no addt'l complaints, except as documented; Denies abdominal pain Genitourinary Genitourinary: Reports systems reviewed and no addt'l complaints, except as documented, contractions Details: present (irregular) and movement Details: present; Denies dysuria or genital lesions Musculoskeletal Musculoskeletal: Reports systems reviewed and no addt'l complaints, except as documented Neurologic Neurologic: Reports systems reviewed and no addt'l complaints, except as documented Endocrine Endocrinology: Reports systems reviewed and no addt'l complaints, except as documented Physical Exam Const alert, oriented x3, no apparent distress and healthy appearing HEENT normocephalic and moist oral mucous membranes Head and Scalp: atraumatic Neck full ROM, no lymphadenopathy, supple and thyroid normal General: trachea midline Lymph Lymphatic: no lymphadenopathy noted Chest inspection of chest normal Resp normal respiratory effort Cardio regular rate GI normal to inspection, nondistended, normoactive bowel sounds, soft to palpation and non-tender Inspection: gravid external exam normal Manual OB Exam: estimated gestational size appropriate, presentation cephalic, dilated, effaced and station Extremity normal to inspection General Extremity: Negative for edema Skin no rashes or lesions noted Neuro no focal motor deficits and deep tendon reflexes 2+ bilaterally Motor Exam: strength 5/5 throughout and clonus absent Psych mental status grossly normal Labs Labs Labs: Blood Type O POSITIVE Antibody Screen NEGATIVE Hct 37.2 % (37-47) Hgb 12.4 g/dL (12.0-15.0) Obstetrics US Syphilis Total Ab Non-reactive Rubella IgG Antibody Reactive (Nonreactive) Hep Bs Antigen Non-Reactive (Nonreactive) Neisseria gonorrhoeae DNA (JOSUE) Negative (Negative) HIV 1&2 Antibody Non-Reactive (Nonreactive) Glucose 1 Hr 50 gm 111 mg/dL (70-140) Miscellaneous Test Assessment & Plan (1) Pre-eclampsia affecting childbirth: COMMENT: admit IOL pit fb, epi PRN, magnesium sulfate if persistent visual symptoms or CANAS or severe pressures (2) : QUALIFIERS: Weeks of gestation: 37 weeks Qualified Code(s): Z3A.37 - 37 weeks gestation of COMMENT: LR genetics (boy) and carrier neg. , afp negative. anatomy nl; GBS NEG (3) Supervision of high risk , antepartum: COMMENT: PRR MT: 04/05/21, boy abi, Spouse: Abimael (4) Obesity affecting : COMMENT: 1 tm gct nl, encouraged healthy weight gain, nl growth 02/12 (5) Recurrent candidiasis of vagina: COMMENT: weekly vaginal terazole
[2021-03-31] MEDS: Lactated Ringers 1,000 ML 50 ML IV (14:05)
[2021-03-31] MEDS: Oxytocin 30 units/NS 500 ml 30 UNITS/500 ML IV.SOLN IV (14:30)
[2021-03-31] MEDS: 0.9% Normal Saline Single 100 ML IV.SOLN. INTRA-UTER (14:50)
[2021-03-31] MEDS: Lactated Ringers 500 ML 999 ML IV ×2 (17:38→21:52)
[2021-03-31] MEDS: fentaNYL-bupivacaine (epidural) 100 ML BAG EPIDURAL ×2 (18:33→22:09)
[2021-03-31] MEDS: Ondansetron 4 MG/2 ML Vial IV (22:09)
[2021-03-31] MEDS: Lactated Ringers 1,000 ML 200 ML IV (23:25)
[2021-04-01] VITALS (98 sets, daily range): BP systolic 82–144; BP diastolic 47–86; PULSE 81–168; RESP 16; TEMP 36.5–37.8; O2SAT 71–100
[2021-04-01] MEDS: proCHLORPERazine 10 MG/2 ML Vial IV (00:14)
[2021-04-01] MEDS: hydrOXYzine PAM 25 MG Capsule 50 MG PO (00:16)
[2021-04-01] MEDS: Lactated Ringers 500 ML 999 ML IV (00:25)
--- NOTE | 2021-04-01 00:40 | PCM.PN.BLA ---
Progress Note evaluated for decel, resolved with position changes, epi replaced current tracing: FHT: 150 Moderate variability cat II tracing mild variable periodic [place]: q 2-3 Contractions reviewed tracing abnormalities since last note: 4 min to 80s good recovery with moderate variability, low bp A/P: pit off for now, 8 cm, position changes
[2021-04-01] MEDS: fentaNYL-bupivacaine (epidural) 100 ML BAG EPIDURAL ×2 (03:44→11:36)
[2021-04-01] MEDS: Lactated Ringers 1,000 ML 999 ML IV ×2 (04:38→06:25)
--- NOTE | 2021-04-01 04:41 | EKG12_ITS ---
Test Reason : HIGH HR Blood Pressure : / mmHG Vent. Rate : 144 BPM Atrial Rate : 144 BPM P-R Int : 128 ms QRS Dur : 072 ms QT Int : 348 ms P-R-T Axes : 058 036 054 degrees QTc Int : 538 ms Sinus tachycardia Nonspecific T wave abnormality Abnormal ECG Confirmed by ROSELIA GUERRERO, GERALD ([id number]), school photograph editor PABLO NICHOLS ([id number]) on 04/01/2021 1:18:32 PM Referred By: Elysia Bar Confirmed By:GERALD VELOZ MD
[2021-04-01] MEDS: Lactated Ringers 1,000 ML 200 ML IV (06:24)
[2021-04-01] MEDS: Amnioinfusion- 0.9% NS 1,000 ML IV.SOLN. 1000 ML INTRA-UTER (06:39)
[2021-04-01] MEDS: Oxytocin 30 units/NS 500 ml 30 UNITS/500 ML IV.SOLN 334 UNITS IV (12:05)
--- NOTE | 2021-04-01 12:44 | EX.PCM.OBRPT ---
Maternal Data Information MT Calculator Estimated Delivery Date Method Current WG Current Estimate 04/05/21 Ultrasound #1 39w 3d Other Estimates 03/29/21 LMP (Certain) 40w 3d Vaginal Delivery Maternal Presentation Maternal Presentation: Medically Indicated Induction Type of Induction: Pitocin and Amniotomy Medical Reason for Induction: Preeclampsia, eclampsia Operative Information Date of Procedure: 04/01/21 Pre-Operative Diagnosis: 39 weeks, pre-eclampsia Post-Operative Diagnosis: 39 weeks pre-eclampsia Surgery / Procedure Performed: Spontaneous Vaginal Delivery Type of Anesthesia: Epidural Estimated Blood Loss: 200cc Findings Description of Procedure: Patient began pushing and delivered the head in the LEV presentation. The head was delivered atraumatically and a loose nuchal cord ?2 was identified and easily reduced over the infant's head. The anterior and posterior shoulders delivered without complication followed by the rest of the and the infant was placed on the maternal abdomen. Delayed cord clamping was employed for approximately 60 seconds. Cord was clamped and cut and gentle traction was applied to the cord and the placenta delivered spontaneously immediately following it was noted to be intact with three-vessel cord. The perineum and vagina were inspected and noted to have bilateral periurethral/labial lacerations that were bleeding.The lacerations were repaired with a 3-0 vicryl rapide suture. EBL was 200 cc. Patient and tolerated delivery well. Presentation: Vertex Amniotic Fluid Description: Clear Placental Delivery Description: Spontaneous Placenta Disposition: [facility] Cord Vessel Description: 3 Vessels Cord Entanglement: Around neck x 2, loose Nuchal Cord Compression: Without compression A Gender: Male (1 minute): 8 (5 minute): 9 Delayed Cord Clamping: Yes Post Vaginal Delivery Medications Given After Delivery: IV Pitocin Episiotomy Description: None Laceration: Vaginal Extension/lac Complication Complications: None
[2021-04-01] MEDS: Acetaminophen 500 MG Tablet 1000 MG PO (19:36)
[2021-04-01] MEDS: Senna/Docusate Sodium 1 Tablet PO (19:37)
[2021-04-02] VITALS: BP 119/76; PULSE 92; RESP 16; TEMP 36.6
[2021-04-02] MEDS: Ibuprofen 600 MG Tablet PO ×2 (00:04→07:45)
[2021-04-02] MEDS: Acetaminophen 500 MG Tablet 1000 MG PO ×2 (01:53→12:20)
[2021-04-02 04:00] VITALS: BP 128/77; PULSE 91; RESP 16; TEMP 36.6
[2021-04-02 07:55] VITALS: BP 108/86; PULSE 100; RESP 16; TEMP 36.8
--- NOTE | 2021-04-02 08:30 | PCM.DC ---
Discharge Instructions Diet Discharge Diet: No restrictions Activity Discharge Activity: Return to Normal Activity, May Not Drive (while taking narcotic pain medications.) and May Shower May resume sexual activity in: 4-6 weeks Dressing / Incision Call your doctor if your incision/area has: Continuous Slow Oozing, Sudden Increased Bleeding, Increased Pain/ Swelling, Increased Redness and Foul Smelling Discharge Follow Up Care Please Follow Up With: Elysia Bar, When: Call [phone] to make an appointment with your doctor in 6 weeks. If you had elevated blood pressure or 4th degree laceration, you will need to be seen in 2 weeks. Test Results: Test results from this visit will be discussed in further detail at your follow-up appointment, if applicable. Discharge Plan Admission Admit Date/Time: 03/31/21 12:45 Attending Provider: Elysia Bar Primary Care Provider: Toby Serna Consulting Providers: Denise Lynch NP Discharge Orders/Prescriptions Prescriptions: No Action prenat.vits,ivania,lsg-gjji-zwpti Tablet 1 tablet PO DAILY RF: 0 terconazole 0.4 % cream 1 appful vaginal QHS RF: 0
--- NOTE | 2021-04-02 08:30 | PCM.DC.SUM ---
Providers Date of Admission: 03/31/21 Primary Care Physician: Dr. Toby Serna MD Reason For Visit: INDUCTION OF LABOR/LABSPEC VAG DEL Diagnosis Discharge Diagnosis (1) Pre-eclampsia affecting childbirth: Status: Acute Code(s): O14.94 - Unspecified pre-eclampsia, complicating childbirth (2) : Status: Acute Code(s): Z34.90 - Encounter for supervision of normal , unspecified, unspecified trimester Qualifiers: Weeks of gestation: 37 weeks Qualified Code(s): Z3A.37 - 37 weeks gestation of (3) Supervision of high risk , antepartum: Status: Acute Code(s): O09.90 - Supervision of high risk , unspecified, unspecified trimester (4) Obesity affecting : Status: Acute Code(s): O99.210 - Obesity complicating , unspecified trimester (5) Recurrent candidiasis of vagina: Status: Acute Code(s): B37.3 - Candidiasis of vulva and vagina Medications at Discharge Home Medications prenat.vits,ivania,ggg-xsiu-atgdg 1 tablet PO DAILY 08/14/20 terconazole 1 appful VAGINAL QHS 03/31/21 ibuprofen 800 mg PO Q8H PRN 7 Days #30 tab 04/02/21 Hospital Course Procedures - (vaginal delivery ) Summary of Care Provided Minutes Spent on Discharge: 25 Hospital Course: The patient was admitted for IOL on 03/31/2021 for preeclampsia at 39 weeks. She progressed with labor and delivered a viable male on 04/01/2021. She recovered well and blood pressures were found to be stable. She requested dc to home on post day #1. Physical Exam Const alert, oriented x3 and no apparent distress General Appearance: cooperative and comfortable Resp normal respiratory effort Cardio regular rate GI normal to inspection, nondistended, normoactive bowel sounds GI Narrative: uterus is firm below umbilicus Palpation: soft Bimanual Exam - Adnexa, Other: Negative for cul-de-sac fullness Back/Spine no CVA tenderness and thoraco-lumbar ROM normal Extremity normal to inspection, no clubbing, cyanosis or edema, no calf tenderness and no pedal edema Psych mental status grossly normal, thought process normal, cooperative, affect normal, speech normal, activity/motor behavior normal, denies homicidal ideation and denies suicidal ideation Weight / BMI Weight Weight: 202 lb 6.15 oz Body Mass Index (BMI) 37.0 ABG / Lab / Microbiology Data Microbiology: Microbiology 03/31/21 Unknown Nasal Secretion SARS-CoV-2 Antigen (Rapid) - Final D/C Instructions Discharge Diet: No restrictions May resume sexual activity in: 4-6 weeks Call your doctor if your incision/area has: Continuous Slow Oozing, Sudden Increased Bleeding, Increased Pain/ Swelling, Increased Redness and Foul Smelling Discharge Please Follow Up With: Elysia Bar DO When: Call [phone] to make an appointment with your doctor in 6 weeks. If you had elevated blood pressure or 4th degree laceration, you will need to be seen in 2 weeks. Meaningful Use Info Meaningful Use Diagnoses (Choose all that apply): None applicable Discharge Plan Admission Admit Date/Time: 03/31/21 12:45 Primary Reason for Your Visit: pre-eclampsia Attending Provider: Elysia Bar Primary Care Provider: Toby Serna Consulting Providers: Denise Lynch SHOE REPAIR SUPERVISOR Discharge Orders/Prescriptions Prescriptions: New ibuprofen 800 mg tablet 800 mg PO Q8H PRN (Reason: pain) 7 Days Qty: 30 RF: 0 Continued prenat.vits,ivania,abf-aams-yacqg Tablet 1 tablet PO DAILY RF: 0 terconazole 0.4 % cream 1 appful vaginal QHS RF: 0 Referrals / Follow Up: Toby Serna MD [Primary Care Provider] - Disposition Disposition (needs filled in before D/C Order can be placed): Home, Self Care
--- NOTE | 2021-04-02 10:56 | CASEMGMT ---
Social Work Labor and Delivery Consult received and records reviewed. Presented to mother of baby's (MOB) room for consult/assessment. MOB was just getting started on breast feeding and infant crying. Offered to come back later so MOB could focus on feeding. MOB expressed appreciation so that could focus. Let MOB and father of baby know would be back after 1230. -WILFREDO Olea, COMMUNICATIONS ASSOCIATE
[2021-04-02] MEDS: Senna/Docusate Sodium 1 Tablet PO (12:20)
--- NOTE | 2021-04-02 13:44 | CM.ED ---
Addendum entered by Karmen Carrillo 04/02/21 13:46: Patient PHQ 2 score was 0. Original Note: SW Note SW met with patient in the room. Present was FOB and patient's mother. Patient gave verbal consent to speak to her in the presence of the visitors. SW explained that this fiction and nonfiction writer prose is speaking to patient in regards to history of anxiety and patient said that she had no anxiety except when she had hypertension at the hospital and had anxiety related to the nb's delivery. Mom: Barb Lopez PNC: [place] Control: Vasectomy Baby: Ángel Roland 04/01/21 Apgars : 8/9 Counter Dish Carrier: Dr. Hudson Breast Feeding MOB's other children: None Housing: Patient, FOB and reside in a house in [place] with their 4 dogs Transportation: Patient has access to transportation and is able to drive a car. Supplies: Patient and FOB report they had 4 baby showers. They report that they have all supplies including crib, bassinet, diapers, clothes etc. Supports: Patient reports that the FOB will be home for 2 weeks and then return to work remotely on a communications department chairperson basis. Patient's mother resides locally and was present during the interview. Patient reports that the FOB's mother resides 1/2 mile away. Agency Involvement: None FOB: Abimael ( called Fady) Time Together: Since 2017. They met at their current employer.SW Note Involved with the NB: Patient reports that the FOB is involved with the nb and he appeared to be attentive and involved with the nb (nb was receiving hearing test in the room) Employment: FOB is employed at [employer]. He will be taking 2 weeks off work and then work remotely communications department chairperson. Both patient and fob have said that the job is family friendly. FOB has no other children FOB Mental Health/AOD/ Domestic Violence: FOB reports no AOD, MH or DV history Maternal Anxiety/MH issues: Patient reports no anxiety previously. Patient reports anxiety related to her having hypertension in the hospital and then learning the cord was wrapped around the nbs nectk She reports she became very worried about the nb. (Of note patient also has had 2 previous miscarriages). Patient reports no medication, counseling or MH treatment. Patient reports no Alcohol or Drug use. (Patient's drug screen during was negative). SW educated patient on Post Depression, Safe Sleep and Shaken Baby Syndrome. SW provided patient with PPD resources which included local counseling agencies, computer web sites for support and also phone support. SW also advised patient that if symptoms of baby blues do not subside in 5-6 days or interfere with her ADL's to contact her BINDERY MACHINE SETTER/SET UP OPERATOR. Patient verbalized understanding. Patient voiced that they are very happy and smiled when talking about the nb. Plan: ZAK updated television anchor and also attempted to update RN Sofía (but phone went when this fiction and nonfiction writer prose called her x2). Home at discharge Karmen RIVERS
[2021-04-02 14:35] VITALS: BP 121/80; PULSE 89; RESP 16; TEMP 36.4
== END 2021-04-02 14:50 | disposition home or self-care (01) | DRG 806 ==
PROVIDERS: Admitting Provider Obstetrics & Gynecology; PCP Internal Medicine; Referring Provider Obstetrics & Gynecology; Visit Provider Obstetrics & Gynecology
DX: O14.94 Unspecified pre-eclampsia, complicating childbirth (principal); O98.82 Other maternal infectious and parasitic diseases complicating childbirth; Z37.0 Single live birth; O70.0 First degree perineal laceration during delivery; O71.82 Other specified trauma to perineum and vulva; B37.3 Candidiasis of vulva and vagina; O69.81X0 Labor and delivery complicated by cord around neck, without compression, not applicable or unspecified; O99.214 Obesity complicating childbirth; E66.9 Obesity, unspecified; Z3A.39 39 weeks gestation of pregnancy
CPT/HCPCS: 59025; 59050; 86850; 86900; 86901; 87426; 93005; 99218; J7030; J7120; G0378; J2405

== ENCOUNTER 2021-05-29 11:20 | Outpatient (CLI) | payer OTHER, SELFPAY ==
[2021-05-29 15:47] LABS: Vitamin D,25 Hydroxy 34.3 ng/mL
[2021-05-29 15:50] LABS: ALB/GLOB Ratio 1.1 RATIO (0.9-2.4); AST(SGOT) 14 U/L (15-37); Alanine Aminotransfer ALT/SGPT 28 U/L (13-56); Albumin, Serum 3.6 g/dL (3.2-5.0); Alkaline Phosphatase 97 U/L (45-117); Anion Gap 7 (5-15); BUN 12 mg/dL (7-18); BUN/Creat Ratio 15.3 RATIO (10-20); Calcium,Total 9.2 mg/dL (8.5-10.1); Chloride 108 mmol/L (98-107); Creatinine, Serum 0.79 mg/dL (0.55-1.02); EST Glomerular Filtration Rate 89 mL/min (>60); Est Glom Filt Rate - Afr Amer 108 mL/min (>60); Globulin 3.4 g/dL (2.2-4.2); Glucose 74 mg/dL (74-106); Potassium 4.1 mmol/L (3.5-5.1); Sodium Level 142 mmol/L (136-145)
== END 2021-05-29 23:59 | disposition short-term general hospital (02) ==
LOC: BIMLAB 11:20
PROVIDERS: PCP Internal Medicine; Referring Provider Internal Medicine; Visit Provider Internal Medicine
DX: E83.51 Hypocalcemia (principal)
CPT/HCPCS: 36415; 80053; 82306

== ENCOUNTER 2021-07-27 15:03 | Outpatient (CLI) | payer OTHER, SELFPAY ==
[2021-07-27 15:54] LABS: hCG Titer Quant., Serum < 1 mIU/mL (1-3)
== END 2021-07-27 23:59 | disposition home or self-care (01) ==
LOC: PAVLAB 15:04
PROVIDERS: PCP Internal Medicine; Referring Provider Obstetrics & Gynecology; Visit Provider Obstetrics & Gynecology
DX: N91.2 Amenorrhea, unspecified (principal)
CPT/HCPCS: 36415; 84702

== ENCOUNTER → 2022-02-02 | Outpatient (CLI) | payer OTHER, SELFPAY ==
[2022-02-02 09:35] LABS: hCG Titer Quant., Serum < 1 mIU/mL (1-3)
== END | disposition home or self-care (01) ==
LOC: PAVLAB 08:46
PROVIDERS: PCP Internal Medicine; Referring Provider Nurse Practitioner Women's Health; Visit Provider Nurse Practitioner Women's Health
DX: N91.2 Amenorrhea, unspecified (principal)
CPT/HCPCS: 36415; 84702

== ENCOUNTER → 2023-03-15 | Outpatient (CLI) | payer OTHER, SELFPAY ==
--- NOTE | 2023-03-15 14:16 | US_ITS ---
STUDY: ULTRASOUND OF THE FEMALE PELVIS - COMPLETE REASON FOR EXAM: Female, 37 years old. Ovarian Cyst LMP: February 23, 2023. TECHNIQUE: Transabdominal and Transvaginal TECHNICAL QUALITY: Adequate. COMPARISON: Comparison is made with prior sonogram dated December 14, 2019. FINDINGS: The uterus is anteverted and is in a midline position. The uterus measures 9.4 cm x 6.6 cm x 4.9 cm. Normal uterine cervix. The endometrium measures 8 mm in thickness, and is hyperechoic. There is no demonstrated endometrial mass. There is no demonstrated myometrial mass. I.U.D. - The patient does not have an I.U.D. The right ovary is visualized. The right ovary measures 3.2 cm x 3.4 cm x 1.9 cm. There is no right ovarian cyst or ovarian mass. There is no visualized right adnexal mass or complex lesion. There is normal arterial and normal venous vascularity. The left ovary is visualized. The left ovary measures 4.7 cm x 3.9 cm x 2.6 cm. There is a 2.1 cm x 1.5 cm x 1.5 cm septated left ovarian cyst. There is no visualized left adnexal mass or complex lesion. There is normal arterial and normal venous vascularity. There is no fluid in the cul-de-sac. The pre void volume of the bladder was 52 ml. US/Transvaginal Non- IMPRESSION: 2.1 cm x 1.5 cm x 1.5 cm septated left ovarian cyst. Electronically Signed: Joel Tay MD at 15:22 EDT ,
== END | disposition home or self-care (01) ==
LOC: US 14:16
PROVIDERS: PCP Internal Medicine; Referring Provider Obstetrics & Gynecology; Visit Provider Obstetrics & Gynecology
DX: N83.209 Unspecified ovarian cyst, unspecified side (principal)
CPT/HCPCS: 76830; 76856

== ENCOUNTER → 2023-04-04 | Outpatient (CLI) | payer OTHER, SELFPAY ==
--- NOTE | 2023-04-04 | EMB_PTH ---
PATHOLOGY RESULTS PATIENT: BANDAR CHAPMAN LOC: [facility] U#:[id number] AGE/SX: 37/F ROOM: RE04/04/[address]: Dr. Elysia Mclaughlin DO : 1985 BED: DIS: 04/04/2023 SPEC #: [id number] RECD: 04/05/23 08:27 STATUS: RITA MEAGHAN #: [id number] MARLO: 04/04/23 00:[address]: Elysia Mclaughlin DEPT: SURGICAL PATHOLOGY RECD BY: Zaina Avilez ENTERED: 04/05/23 08:29 SP TYPE: ENDOM BX/C MAYCO DR: Dr. Toby Serna MD Tissues: Endometrium, NOS Procedures: Surgery Specimen Level IV HEADER OPERATION: Endometrial biopsy PRE-OP DIAGNOSIS: Endometrial thickening TISSUE SUBMITTED: Endometrial lining MICROSCOPIC DIAGNOSIS Endometrium, biopsy: Secretory change with extensive stromal breakdown and acute inflammation. AM:gretta 04/06/2023 MICROSCOPIC DESCRIPTION Slides are reviewed. GROSS DESCRIPTION Received is one container labeled with the patient's name and not further designated. The specimen consists of multiple irregular and mucoid fragments of solares tissue that in aggregate measure 2.5 x 1.5 x 0.1 cm. The specimen is totally submitted in one cassette. / AM:gretta 04/05/2023 TC:2 CPT: 60687
--- OUTSIDE RECORDS SUMMARY | 2023-04-04 14:01 | XMS RPT_ITS | CCD ---
Author Name Unknown Address [address] [place] [address] Organization [facility] Results Test Name Value Interpretation Reference Range Facil ity Progress note 01-29-2021 Note Date & Type Note Facility 01-29-2021 Note HNO ID: [id number] Author: Lynda Ren MD Service: ? 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 Lynda Ren MD [facility] Summary Purpose Family History No Family History Records Found Advance Directives No Advanced Directives Records Found Additional Source Comments INFORMATION SOURCE (unrecogn ized section and content) FOR RECORDS PERTAINING TO PATIENTS WHO ARE OR HAVE BEEN ENROLLED IN A CHEMICAL DEPENDENCY/SUBSTANCEABUSE PROGRAM, SOME INFORMATION MAY BE OMITTED. This clinical summary was aggregated from multiple sources. Caution should be exercised in using it in the provision of clinical care. This summary normalizes information from multiple sources, and as a consequence, information in this document may materially change the coding, format and clinical context of patient data. In addition, data may be omitted in some cases. CLINICAL DECISIONS SHOULD BE BASED ON THE PRIMARY CLINICAL RECORDS. [employer] provides no warranty or guarantee of the accuracy or completeness of information in this document.
== END | disposition home or self-care (01) ==
LOC: LABSPEC 13:29
PROVIDERS: PCP Internal Medicine; Referring Provider Obstetrics & Gynecology; Visit Provider Obstetrics & Gynecology
DX: R93.89 Abnormal findings on diagnostic imaging of other specified body structures (principal)
CPT/HCPCS: 88305

== ENCOUNTER → 2023-04-26 | Outpatient (CLI) | payer OTHER, SELFPAY ==
[2023-05-03 12:22] LABS: Hematocrit 43.2 % (37-47); Hemoglobin 13.9 g/dL (12.0-15.0); Mean Corp Hgb Conc 32.2 g/dL (32-36); Mean Corpuscular Hgb 26.4 pg (27.0-32.0); Mean Corpuscular Volume 82.1 fL (81-99); Mean Platelet Vol. 9.1 fl (6.2-12.0); Platelet Count 306 K/mm3 (150-450); RBC Distribution Width CV 13.4 % (11.6-14.6); RBC Distribution Width SD 39.5 fl (35.1-43.9); Red Blood Count 5.26 M/mm3 (4.2-5.4); White Blood Count 8.2 K/mm3 (4.4-11.0)
[2023-05-03 12:40] LABS: Magnesium 2.4 mg/dL (1.6-2.6)
--- OUTSIDE RECORDS SUMMARY | 2023-05-27 16:29 | XMS RPT_ITS | CCD ---
Author Name Unknown Address [address] [place] [address] Organization [facility] Results Test Name Value Interpretation Reference Range Facil ity Progress note 01-29-2021 Note Date & Type Note Facility 01-29-2021 Note HNO ID: [id number] Author: Lynda Ren MD Service: ? 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 Lynda Ren MD [facility] Summary Purpose Family History No Family History [...] BE BASED ON THE PRIMARY CLINICAL RECORDS. [employer] provides no warranty or guarantee of the accuracy or completeness of information in this document.
== END | disposition home or self-care (01) ==
LOC: PAT 05-27 15:20
PROVIDERS: PCP Internal Medicine; Referring Provider Obstetrics & Gynecology; Visit Provider Obstetrics & Gynecology
DX: Z01.818 Encounter for other preprocedural examination (principal)
CPT/HCPCS: 36415; 83735; 85027; 86850; 86900; 86901

== ENCOUNTER 2023-10-06 14:35 | Emergency (ER) | payer OTHER, SELFPAY ==
[2023-10-06 14:36] VITALS: BP 163/100; PULSE 81; RESP 16; TEMP 36.8; O2SAT 97; BMI 30.3
--- NOTE | 2023-10-06 14:51 | CT_ITS ---
STUDY: CT ABDOMEN AND PELVIS WITH CONTRAST REASON FOR EXAM: Female, 38 years old. llq pain RADIATION DOSAGE (If Supplied By Facility): CTDIvol = ( 15.09 ) mGy, DLP = ( 788.71 ) mGycm TECHNIQUE: Transaxial images were obtained from the dome of the diaphragm to the symphysis pubis without oral contrast. IV 100mL Isovue-370 was administered. Sagittal and coronal images were reconstructed. Individualized dose optimization techniques were used for this CT. COMPARISON: None. FINDINGS: The visualized lung bases are unremarkable. The visualized portions of the heart are within normal limits. Normal liver. Normal gallbladder and extrahepatic biliary system. Normal spleen. Normal pancreas. Normal bilateral adrenal glands. Normal right kidney. Normal left kidney. Normal visualized stomach. There are multiple loops of fluid-filled small bowel with mild thickening of the folds and fluid-filled large bowel without evidence for small bowel obstruction or inflammatory changes in the fat which may be consistent with mild enterocolitis.. . The appendix is visualized and appears normal. Normal abdominal aorta. Normal inferior vena cava. Normal retroperitoneum. Incompletely distended mildly diffusely thick-walled bladder likely of no significance.. Small left ovarian cysts are noted Normal abdominal wall. Normal osseous structures. CT/Abdomen/Pelvis W IV Cont ONLY IMPRESSION: Findings which may be consistent with mild nonspecific enterocolitis. No evidence for small bowel obstruction, acute appendicitis or diverticulitis Electronically Signed: Spencer Sanchez MD at 16:15 EDT ,
--- NOTE | 2023-10-06 14:52 | EDS_ITS ---
HPI HPI - GI History of Present Illness Chief Complaint: Abd Pain Informant: patient and spouse/S.O. Narrative Narrative: 2-day history of abdominal pain. Symptoms nausea started Tuesday night. Awake and mid abdominal pain with diarrhea. Had multiple episodes.'s been consistent at 2 today. No recent antibiotics. Yesterday ate and increasing pain. Pain radiates across her abdomen. No abdominal surgeries. She is currently on her m enstrual period. Denies any previous similar symptoms in past. Denies any abdominal surgeries in the past. Denies any medication allergies. Yesterday had vomiting no hematemesis. None today. PFSH PFS Medical History Acute otitis media, right Restless legs Migraine headache Non-smoker URI (upper respiratory infection) Eustachian tube dysfunction Left ear pain Acute bronchitis, unspecified Acute sinusitis, unspecified Dermatitis Obesity (BMI 30.0-34.9) Hypocalcemia Skin mole Right foot pain Genital warts Ovarian cyst History of pneumonia PCOS (polycystic ovarian syndrome) Neck pain Chest pain Frequent headaches Home Medications ?Medication ?Instructions ?Recorded ?Last Taken ?Type ondansetron 4 mg disintegrating 4 mg PO Q8H PRN PRN Nausea #10 tabs 10/06/23 Unknown Rx tablet Allergy/AdvReac Type Severity Reaction Status Date / Time ultrasound coupling medium Allergy Hives Verified 10/06/23 14:38 Family History Mother Hypertension Asthma Father Myocardial infarction, Onset Age: 50 Hypertension Brother Hypertension Grandmother Parkinsons Other Anxiety Hyperlipemia Surgical History History of wisdom tooth extraction, class IV edentulism S/P eye surgery Social History adopted: No household members: spouse housing: house current occupational status: employed 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 pets and animals: Yes history of recent travel: No sexually active: Yes Smoking Status: Never smoker second hand exposure: No alcohol intake: never substance use type: does not use caffeine: Yes what type of physical activity do you participate in: walking frequency: 1-2 times per week seatbelt use: always do you feel safe at home: Yes additional social history: - Abimael- Security Admin ROS ROS ED Constitutional Constitutional ED: Denies chills, fever(s) or sweats Eyes Eyes: Denies change in vision ENT ENT ED: Denies dysphagia or sore throat Cardiovascular Cardiovascular: Denies chest pain, leg edema, palpitations or racing heartbeat Respiratory/Chest Respiratory/Chest: Denies cough, dyspnea or dyspnea on exertion Gastrointestinal Gastrointestinal: Reports abdominal pain, diarrhea, nausea and vomiting Genitourinary Genitourinary ED: Denies dysuria, hematuria or urinary frequency Musculoskeletal Musculoskeletal: Denies back pain, extremity pain or neck pain Integumentary Denies rash or wounds Neurologic Neurologic: Denies headache(s), paresthesias or weakness EXAM Physical Exam Const Vital Signs: 10/06/23 14:36 10/06/23 16:29 10/06/23 17:08 Temperature 98.2 F 98.2 F Temperature Source Temporal Pulse Rate 81 63 61 Respiratory Rate 16 16 16 Blood Pressure 163/100 H 139/96 H 123/97 H Blood Pressure Mean 121 110 105 Pulse Ox 97 100 99 Oxygen Delivery Method Room Air Room Air Positive well nourished and well developed General Appearance ED: well developed and NAD HEENT Reports dry mucous membranes normocephalic and atraumatic Mouth ED: Yes dry mucous membranes Mouth: dry mucous membranes Eyes EOMs intact bilaterally and conjunctivae normal General Eye ED: Yes normal appearance of both eyes Neck no lymphadenopathy and supple General: Negative for tenderness Chest Wall Chest: Negative for tenderness Resp normal respiratory effort and normal air movement Effort and Inspection: symmetric chest movement; Negative for respiratory distress Cardio regular rate, regular rhythm and no murmurs Peripheral Pulses: pulses 2+ throughout GI normal to inspection, nondistended, normoactive bowel sounds GI Narrative: Negative Hilario's and McBurney's tenderness. Tender palpation left lower quadrant. Palpation: Negative for guarding or rebound tenderness present Back/Spine no CVA tenderness and no thoracic nor lumbar tenderness Extremity normal to inspection General Extremety ED: Negative for edema or tenderness General Extremity: Negative for edema Neuro oriented x3 and no sensory deficits noted Sensorium / Orientation: awake and alert Skin no rashes or lesions noted and no wounds MDM MDM MDM Narrative Medical decision making narrative: Interventions / MDM: Differential diagnosis: Abdominal pain, diarrhea, dehydration Diagnosis considered but do not suspect: Appendicitis, diverticulitis, bowel obstructions however CT negative. My EKG interpretation: N/A Imaging independently reviewed and interpreted by myself: CT abdomen pelvis IV contrast: Enteric colitis, no diverticulitis or appendicitis. No bowel obstructions. Also read by radiology. External documents reviewed: N/A Test considered but not ordered:N/A ED course: Patient dry mucous membranes on exam. No C. difficile risk factors. On exam with tenderness more left lower quadrant. Denies any family history of Crohn's disease or ulcerative colitis. Will check abdominal labs, fluids and antiemetics. She declines any pain medicines. Will check CT IV contrast for further evaluation. CT negative for appendicitis or diverticulitis. Entero-colitis noted. Patient vomiting diarrhea. No diarrhea while in the ED. Clinically feeling better on reevaluation. Tolerating oral fluids. Discharge prescription for Zofran to use as needed continue oral fluids for hydration. Labs stable slight hypokalemia 3.4. Outpatient follow-up with return precautions. All questions were answered. Re-evaluation: stable Disposition discussed with patient/family/significant other: Patient significant other Case discussed with consulting clinician: N/A This note was generated with [employer] dictation software. It may contain incorrect words, spelling, and punctuation that were not noted in checking the note before signing. Lab Data Attestation: I reviewed the patient's lab results. Labs: Laboratory Results - last 24 hr 10/06/23 14:55 WBC 7.3 RBC 5.62 H Hgb 15.0 Hct 44.8 MCV 79.7 L MCH 26.7 L MCHC 33.5 RDW Std Deviation 37.7 RDW Coeff of Suzy 13.2 Plt Count 342 MPV 9.2 Immature Gran % (Auto) 0.400 Neut % (Auto) 69.1 Lymph % (Auto) 21.7 [place] % (Auto) 6.7 Eos % (Auto) 1.8 Baso % (Auto) 0.3 Absolute Neuts (auto) 5.1 Absolute Lymphs (auto) 1.59 Nucleated RBC % 0 Sodium 138 Potassium 3.4 L Chloride 107 Carbon Dioxide 24.0 Anion Gap 7 BUN 8 Creatinine 0.79 Estim Creat Clear Calc 93.46 Est GFR (MDRD) Af Amer 106 Est GFR (MDRD) Non-Af 87 BUN/Creatinine Ratio 10.1 Glucose 90 Calcium 8.5 Total Bilirubin 0.40 AST 33 ALT 48 Alkaline Phosphatase 100 Total Protein 7.6 Albumin 3.9 Globulin 3.7 Albumin/Globulin Ratio 1.1 Lipase 35 Urine Color Yellow Urine Clarity Sl. Cloudy Urine pH 6.0 Ur Specific [place] 1.015 Urine Protein 30 H Urine Glucose (UA) Normal Urine Ketones 15 H Urine Occult Blood 250 H Urine Nitrite Negative Urine Bilirubin Negative Urine Urobilinogen Normal Ur Leukocyte Esterase 25 H Urine RBC 25-50 SEEN Urine WBC 0-5 SEEN Ur Squamous Epith Cells 0-5 SEEN Urine Bacteria 1+ Urine Mucus 0 SEEN Urine Test Negative Radiography Diagnostic Testing: Clinical Impression(s) from Imaging Studies Abdomen/Pelvis CT 10/06/23 14:51 IMPRESSION: Findings which may be consistent with mild nonspecific enterocolitis. No evidence for small bowel obstruction, acute appendicitis or diverticulitis Electronically Signed: Spencer Sanchez MD at 16:15 EDT Reading Location ID and State: [address] [place] [address] Tel , Service support , Discharge Plan Triage Chief Complaint: Abd Pain ED Provider: Simone Benton Dx/Rx/DC Orders Clinical Impression: Abdominal pain, Diarrhea, Nausea, Hypokalemia Instructions: ED Abdominal Pain Unkn Cause Fem, ED Diet Vomiting Diarrhea Prescriptions: New ondansetron 4 mg tablet,disintegrating 4 mg PO Q8H PRN PRN (Reason: Nausea) Qty: 10 0RF Primary Care Provider: Toby Serna Referrals: Toby Serna MD [Primary Care Provider] - 3-5 Days Activity Restrictions/Additional Instructions: Your CT scan normal appendix no diverticulitis, gastroenteritis findings. Labs with normal white count. Potassium 3.4. Creatinine 0.79. Continue oral fluids for hydration use Zofran as needed. Tylenol as needed for discomfort. If your symptoms worsens not controlled with medications, unable to keep down fluids, return to the ED for reevaluation. Print Language: Hebrew Disposition Disposition: Home, Self Care Discharge Date/Time: 10/06/23 17:09
[2023-10-06] MEDS: Ondansetron 4 MG/2 ML Vial IV (15:00)
[2023-10-06] MEDS: 0.9% Normal Saline (1000mL) 1,000 ML 999 ML IV (15:00)
[2023-10-06 15:12] LABS: Mucous, Urine 0 SEEN /hpf (<or=2+)
[2023-10-06 15:16] LABS: Color, Urine Yellow (Yellow); Glucose, Dipstick Normal (Normal); Ketone-Dipstick 15 mg/dl (Negative); Leukocyte Esterase-Dipstick 25 /ul (Negative); Nitrite-Dipstick Negative (Negative); Occult Blood-Urine 250 /ul (Negative); Protein-Dipstick 30 mg/dl (Negative); Specific Gravity, Urine 1.015 (1.002-1.030); Urine Bilirubin Dipstick Negative (Negative); Urine Clarity Sl. Cloudy (Clear); Urine Urobilinogen Normal (Normal)
[2023-10-06 15:18] LABS: Absolute Lymphocyte Count 1.59 X10^3/uL (0.83-4.51); Absolute Neutrophil Count 5.1 X10^3/uL (2.0-7.7); Basophil# 0.02 X10^3/uL; Basophil% 0.3 % (0-1); Eosinophil# 0.13 X10^3/uL; Eosinophils% 1.8 % (0-5); Hematocrit 44.8 % (37-47); Lymphocyte # 1.59 X10^3/ul (0.83-4.51); Lymphocyte % 21.7 % (19-41); Mean Corp Hgb Conc 33.5 g/dL (32-36); Mean Corpuscular Hgb 26.7 pg (27.0-32.0); Mean Corpuscular Volume 79.7 fL (81-99); Mean Platelet Vol. 9.2 fl (6.2-12.0); Monocyte# 0.49 X10^3/uL; Monocyte% 6.7 % (0-10); NRBC Flagged by Analyzer 0 % (0-5); Neutrophil # 5.08 X10^3/uL (2.7-7.7); Neutrophil % 69.1 % (47-70); Platelet Count 342 K/mm3 (150-450); RBC Distribution Width CV 13.2 % (11.6-14.6); RBC Distribution Width SD 37.7 fl (35.1-43.9); Red Blood Count 5.62 M/mm3 (4.2-5.4); White Blood Count 7.3 K/mm3 (4.4-11.0)
[2023-10-06 15:23] LABS: Bacteria 1+ /hpf (None Seen); Red Blood Cells-Urine 25-50 SEEN /hpf (0-5); Squamous Epithelial Cells - UA 0-5 SEEN /hpf (5-10); White Blood Cells 0-5 SEEN /hpf (0-5)
[2023-10-06 15:24] LABS: Internal QC Validated? YES +Cl - CLEAR BKGD; Pregnancy, Urine Negative Negative; Record Kit Lot#,Urine Preg HCG0000718089
[2023-10-06 15:44] LABS: ALB/GLOB Ratio 1.1 RATIO (0.9-2.4); AST(SGOT) 33 U/L (15-37); Alanine Aminotransfer ALT/SGPT 48 U/L (13-56); Albumin, Serum 3.9 g/dL (3.2-5.0); Alkaline Phosphatase 100 U/L (45-117); Anion Gap 7 (5-15); BUN 8 mg/dL (7-18); BUN/Creat Ratio 10.1 RATIO (10-20); Calcium,Total 8.5 mg/dL (8.5-10.1); Chloride 107 mmol/L (98-107); Creatinine, Serum 0.79 mg/dL (0.55-1.02); EST Glomerular Filtration Rate 87 mL/min (>60); Est Glom Filt Rate - Afr Amer 106 mL/min (>60); Estimated Creatinine Clearance 93.46 ml/min; Globulin 3.7 g/dL (2.2-4.2); Glucose 90 mg/dL (74-106); Lipase 35 U/L (13-75); Potassium 3.4 mmol/L (3.5-5.1); Protein, Total 7.6 g/dL (6.4-8.2); Sodium Level 138 mmol/L (136-145)
[2023-10-06 16:29] VITALS: BP 139/96; PULSE 63; RESP 16; O2SAT 100
[2023-10-06 17:08] VITALS: BP 123/97; PULSE 61; RESP 16; TEMP 36.8; O2SAT 99
== END 2023-10-06 17:09 | disposition home or self-care (01) ==
PROVIDERS: Emergency Provider Emergency Medicine; PCP Internal Medicine; Visit Provider Emergency Medicine
DX: R10.9 Unspecified abdominal pain (principal); R19.7 Diarrhea, unspecified; E87.6 Hypokalemia; R11.0 Nausea
CPT/HCPCS: 74177; 80053; 81001; 81025; 83690; 85025; 96361; 96374; 99283; J7030; Q9967; A4216; J2405